=== PATIENT | male | born 1955 | race Caucasian/White ===

== ENCOUNTER 2018-07-18 05:36 | Inpatient (IN) ==
[2018-07-04 12:39] LABS: Basophils % 0.7 % (0.0-0.8); Eosinophils # 0.3 10*3/uL (0.0-0.87); Eosinophils % 5.5 % (0.00-10.9); Hematocrit 43.4 VOL% (42.0-52.0); Hemoglobin 14.5 GM/DL (14.0-18.0); Immature Granulocytes % 0.7 %; Immature Granulocytes Absolute 0.03 #; Lymphocytes % 22.3 % (21.2-54.2); Mean Corpuscular HGB Conc 33.4 GM/DL (32-36); Mean Corpuscular Hemoglobin 31 PG (27-34); Mean Corpuscular Volume 92.7 FL (87-102); Mean Platelet Volume 9.5 FL (9.6-12.0); Monocytes # 0.3 10*3/uL (0.11-0.8); Monocytes % 7.4 % (1.7-12.7); Neutrophils # 2.9 10*3/uL (1.4-7.4); Neutrophils % 63.4 % (38.7-73.9); Platelet Count 208 T/CUMM (130-400); Red Blood Count 4.68 MC/CUMM (3.8-5.5); Red Cell Distribution Width 13.7 % (9.3-17.3); White Blood Count 4.6 T/CUMM (4-12)
[2018-07-04 12:42] LABS: Apearance,Urine CLEAR (Clear); Bilirubin,Urine Negative (Negative); Blood, Urine Negative (Negative); Glucose,Urine (UA) Negative (Negative); Ketones,Urine Negative (Negative); Mucus,Urine Occasional /LPF (Occasional); Nitrite,Urine Negative (Negative); Protein,Urine Negative; RBC,Urine <1 /HPF (0-4); Squamous Epithelial Cell,Urine Occasional /HPF (0-10); Urine Color Yellow (Yellow); Urine Specific Gravity 1.011 (1.001-1.035); Urine Urobilinogen < 2.0 EU/DL (0.2-1.0); WBC,Urine 1 /HPF (0-6)
[2018-07-04 12:49] LABS: PT Patient Result 10.7 SECS; Partial Thromboplastin Time 26.8 SECS (0-40)
[2018-07-04 13:01] LABS: Bilirubin,Total 0.6 MG/DL (0.2-1.0); Calcium 9.7 MG/DL (8.5-10.1); Osmolality,Calculated 272.8 MOS/KG (273-304); Potassium 5.1 MMOL/L (3.5-5.1); Total Protein 7.6 G/DL (6.4-8.3)
[2018-07-18] MEDS ORDERED: VANCOMYCIN 1,000 MG VIAL ONE (07:51)
[2018-07-18] MEDS ORDERED: ceFAZolin 1,000 MG VIAL ONE (07:51)
[2018-07-18] MEDS ORDERED: DIAZEPAM 5 MG TABLET PO ONE (08:02)
[2018-07-18] MEDS ORDERED: FAMOTIDINE 20 MG TABLET PO ONE (08:02)
[2018-07-18] MEDS ORDERED: DIAZEPAM 5 MG TABLET ONE (08:14)
[2018-07-18] MEDS ORDERED: FAMOTIDINE 20 MG TABLET ONE (08:14)
[2018-07-18] MEDS ORDERED: LACTATED RINGERS 1,000 ML IV SCH (08:30)
[2018-07-18] MEDS ORDERED: VANCOMYCIN INJ 1,000 MG in SODIUM CHLORIDE 0.9% 250 ML IV ONE (09:00)
[2018-07-18] MEDS ORDERED: ceFAZolin 1,000 MG in SYRINGE 1 EACH IV ONE (09:00)
[2018-07-18] MEDS ORDERED: ROPIVACAINE 0.5% 30 ML VIAL ONE (09:15)
[2018-07-18] MEDS ORDERED: MAGNESIUM HYDROXIDE SUSP 30 ML UDCUP PO PRN (11:07)
[2018-07-18] MEDS ORDERED: oxyCODONE IR 5 MG TABLET PO PRN ×2 (11:07)
[2018-07-18] MEDS ORDERED: MORPHINE 4 MG/1 ML VIAL IV PRN ×2 (11:07)
[2018-07-18] MEDS ORDERED: ZALEPLON 5 MG CAPSULE PO PRN (11:07)
[2018-07-18] MEDS ORDERED: ONDANSETRON 4 MG/2 ML VIAL IV PRN (11:07)
[2018-07-18] MEDS ORDERED: diphenhydrAMINE CAP 25 MG CAPSULE PO PRN (11:07)
[2018-07-18] MEDS ORDERED: PROPOFOL 200 MG/20 ML VIAL IV ONE (11:27)
[2018-07-18] MEDS ORDERED: MIDAZOLAM 2 MG/2 ML VIAL ONE (11:28)
[2018-07-18] MEDS ORDERED: fentaNYL 100 MCG/2 ML VIAL ONE (11:28)
[2018-07-18] MEDS ORDERED: PROPOFOL 500 MG/50 ML BOTTLE IV ONE (11:29)
[2018-07-18] MEDS ORDERED: ONDANSETRON 4 MG/2 ML VIAL ONE (11:29)
[2018-07-18] MEDS ORDERED: GLYCOPYRROLATE 0.4 MG/2 ML VIAL ONE (11:29)
[2018-07-18] MEDS ORDERED: PHENYLEPHRINE 1 MG/10 ML SYRINGE IV ONE (11:29)
[2018-07-18] MEDS ORDERED: LACTATED RINGERS 1,000 ML IV ONE (11:29)
[2018-07-18] MEDS: LACTATED RINGERS 1,000 ML IV SCH ×3 (11:30→22:59)
[2018-07-18] MEDS: KETOROLAC 30 MG/1 ML VIAL IV SCH ×2 (14:07→20:07)
[2018-07-18] MEDS: ceFAZolin 2,000 MG in PREMIX 1 EACH IV SCH ×2 (15:43→23:00)
[2018-07-18] MEDS: ACETAMINOPHEN 500 MG TABLET PO SCH ×2 (15:53→22:58)
[2018-07-18] MEDS: DOCUSATE SODIUM 100 MG CAPSULE PO SCH (20:09)
[2018-07-19] MEDS: KETOROLAC 30 MG/1 ML VIAL IV SCH ×2 (02:33→08:08)
[2018-07-19] MEDS: ACETAMINOPHEN 500 MG TABLET PO SCH ×2 (03:33→10:28)
[2018-07-19] MEDS: LACTATED RINGERS 1,000 ML IV SCH (03:59)
[2018-07-19 05:19] LABS: Basophils % 0.5 % (0.0-0.8); Eosinophils # 0.2 10*3/uL (0.0-0.87); Eosinophils % 4.1 % (0.00-10.9); Hematocrit 33.2 VOL% (42.0-52.0); Immature Granulocytes % 0.5 %; Immature Granulocytes Absolute 0.02 #; Lymphocytes # 0.8 10*3/uL (1.4-4.0); Lymphocytes % 20.5 % (21.2-54.2); Mean Corpuscular HGB Conc 33.1 GM/DL (32-36); Mean Corpuscular Hemoglobin 32 PG (27-34); Mean Corpuscular Volume 95.7 FL (87-102); Mean Platelet Volume 9.5 FL (9.6-12.0); Monocytes # 0.5 10*3/uL (0.11-0.8); Neutrophils # 2.4 10*3/uL (1.4-7.4); Neutrophils % 62.4 % (38.7-73.9); Platelet Count 142 T/CUMM (130-400); Red Blood Count 3.47 MC/CUMM (3.8-5.5); White Blood Count 3.9 T/CUMM (4-12)
[2018-07-19 05:40] LABS: Calcium 8.9 MG/DL (8.5-10.1); Osmolality,Calculated 275.7 MOS/KG (273-304); Potassium 4.4 MMOL/L (3.5-5.1)
[2018-07-19] MEDS ORDERED: FONDAPARINUX 2.5 MG/0.5 ML SYRINGE SUBCUT SCH (06:00)
[2018-07-19] MEDS: DOCUSATE SODIUM 100 MG CAPSULE PO SCH (08:07)
[2018-07-19] MEDS ORDERED: LEVOTHYROXINE 100 MCG TABLET PO SCH (09:00)
[2018-07-19] MEDS ORDERED: LISINOPRIL 10 MG TABLET PO SCH (09:00)
[2018-07-19 11:29] VITALS: BP 130/72
[2018-07-19] MEDS ORDERED: CELECOXIB 200 MG CAPSULE PO SCH (17:08)
== END 2018-07-19 15:30 | disposition home health service (06) | DRG 470 ==
LOC: N.OR 05:36 → N.SDSINP 05:37 → N.3E 11:08
PROVIDERS: ADMIT Orthopaedic Surgery; ATTEND Orthopaedic Surgery